=== PATIENT | female | born 2000 | race African-American/Black ===

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

== ENCOUNTER 2020-02-25 09:24 | Emergency (ER) | payer OTHER ==
[2020-02-25 09:35] VITALS: BP 137/80
--- NOTE | 2020-02-25 11:16 | ED Physician Documentation ---
History of Present Illness - Stated complaint Stated Complaint: FEMALE - Chief complaint Chief Complaint: Abd Pain - History obtained from History obtained from: Patient - Additonal information Additional information: Patient comes emergency department complaining of abdominal pain that feels like her menstrual cramps, as well as GI bleeding. Patient states that she for the last couple of days has been noticing drips of blood on her underwear. She states she thought she was starting her period, as she was due for her. 4 days ago, and put a tampon in. However, when she removed the tampon, there was no blood on it. She states that she then realized that the blood was actually coming from her anal area. She states that is a small amount of blood and is intermittent, but seems to be worse after she has a bowel movement. Patient states she has a history of hemorrhoids which seem to be getting better. However, she is chronically constipated and has hard stools which are difficult to push out. Patient states that she has not felt lightheaded or dizzy. She denies any nausea or vomiting. She states she does have pain with bowel movements in the anal area. No other complaints at this time. Review of Systems Ten Systems: 10 systems reviewed and negative Constitutional: reports: Reviewed and negative Eyes: reports: Reviewed and negative Ears: reports: Reviewed and negative Nose: reports: Reviewed and negative Throat: reports: Reviewed and negative Cardiac: reports: Reviewed and negative Respiratory: reports: Reviewed and negative GI: reports: Abdominal Pain (Cramps), Bloody / black stool, Other (Blood per rectum) : reports: Reviewed and negative Skin: reports: Reviewed and negative Musculoskeletal: reports: Reviewed and negative Neurologic: reports: Reviewed and negative Psychiatric: reports: Reviewed and negative Endocrine: reports: Reviewed and negative Immunocompromised: reports: Reviewed and negative PD PAST MEDICAL HISTORY - Past Medical History GI: Hemorrhoids FORESTRY AIDE: None : None Psych: None Musculoskeletal: None - Past Surgical History Past Surgical History: No - Present Medications Home Medications: Ambulatory Orders Medication Instructions Recorded Confirmed Hydrocortisone [Anusol-Hc] 30 gm RC TID PRN 7 Days #1 02/25/20 cream..g. - Allergies Allergies/Adverse Reactions: Allergies Allergy/AdvReac Type Severity Reaction Status Date / Time nickel AdvReac Rash Verified 02/25/20 09:35 - Social History Does the pt smoke?: No Smoking Status: Never smoker Does the pt drink ETOH?: No Does the pt have substance abuse?: No - Immunizations Immunizations are current?: No PD ED PE NORMAL - Vitals Vital signs reviewed: Yes - General General: Alert and oriented X 3, No acute distress - HEENT HEENT: Atraumatic, PERRL, EOMI, Moist mucous membranes - Neck Neck: Supple, no meningeal sign - Cardiac Cardiac: RRR, No murmur - Respiratory Respiratory: No respiratory distress, Clear bilaterally - Abdomen Abdomen: Soft, Non tender, Non distended - Rectal Rectal: Other (Patient has a mild amount of bloody residue perianally. No external hemorrhoids are noted. No pain with rectal exam. No mass. Mild amount of diluted bloody residue noted on glove after exam.) - Derm Derm: Normal color, Warm and dry, No rash - Extremities Extremities: No deformity - Neuro Neuro: Alert and oriented X 3 - Psych Psych: Normal mood, Normal affect Results - Vitals Vitals: Vital Signs - 24 hr 02/25/20 09:31 Temperature 36.9 C Heart Rate 96 Respiratory 14 Rate Blood Pressure 137/80 H O2 Saturation 98 Oxygen O2 Source Room air PD MEDICAL DECISION MAKING - ED course Complexity details: considered differential, d/w patient ED course: I discussed with the patient that the patient may have an internal hemorrhoid that is causing issues or she may have an anal fissure. We have discussed the causes of both of these, as well as prevention. The patient at this point in time does not appear to be losing a significant amount of blood, and has declined a CBC in the emergency department. I discussed with her that I will prescribe her Anusol HC which she may use for symptomatic relief. She is advised to follow-up with her primary care physician. The patient states that she was planning to go to [facility] and get a test, but is asking if we can do this not emergently here. I have discussed with the patient that this is not related to her main complaint and is not an emergent issue, and that she should continue her plans to get an [id number] test. We have d iscussed the usual indications for return. Departure - Departure Disposition: 01 Home, Self Care Clinical Impression: Lower GI bleed Constipation Qualifiers: Constipation type: unspecified constipation type Qualified Code(s): K59.00 - Constipation, unspecified Condition: Stable Instructions: ED Constipation, ED Hematochezia Stable Prescriptions: Hydrocortisone [Anusol-Hc] 30 gm RC TID PRN 7 Days #1 cream..g. PRN Reason: Rectal Pain
== END 2020-02-25 11:32 | disposition home or self-care (01) ==
LOC: ED 09:24
DX: K92.2 Gastrointestinal hemorrhage, unspecified (principal); K59.00 Constipation, unspecified
CPT/HCPCS: 85025; 99283; 99284